=== PATIENT | male | born 1975 | race African-American/Black ===

== ENCOUNTER 2024-09-25 04:17 | Day surgery (SDC) | payer OTHER ==
[2024-09-22 10:10] VITALS: BMI 24.6
[2024-09-25] MEDS ORDERED: MIDAZOLAM HCL 2 MG/2 ML SINGLE DOSE VIAL ONE (07:17)
[2024-09-25 09:56] VITALS: RESP 16
[2024-09-25] MEDS ORDERED: KETOROLAC TROMETHAMINE 30 MG/1 ML VIAL ONE (11:12)
[2024-09-25 11:41] VITALS: TEMP 97.7
[2024-09-25 12:29] VITALS: BP 120/70; PULSE 52
== END 2024-09-25 12:30 | disposition home or self-care (01) ==
LOC: JASU-SURG 04:17
PROVIDERS: ATTEND Urology
PROC: 0TF3XZZ Fragmentation in Right Kidney Pelvis, External Approach (ICD-10-PCS; principal; 2024-09-25 07:30)
DX: N20.0 Calculus of kidney (principal)